=== PATIENT | female | born 1960 | race Caucasian/White ===

== ENCOUNTER 2018-12-17 10:02 | Observation (INO) | payer BC ==
[2018-12-17 10:26] LABS: CHLORIDE,CL 104 mEq/L (98-106); SODIUM,NA 138 mEq/L (136-145)
[2018-12-17] MEDS ORDERED: Ondansetron 4 MG/2 ML SDV IV ONE (11:15)
[2018-12-17] MEDS ORDERED: Sodium Chloride 0.9% 1,000 ML IV ONE (11:15)
[2018-12-17] MEDS ORDERED: Ketorolac 30 MG/ML SDV IVPUSH ONE (11:15)
[2018-12-17] MEDS: fentaNYL 100 MCG/2 ML SDV IV PRN ×4 (11:28→20:23)
[2018-12-17] MEDS: Ondansetron 4 MG/2 ML SDV IVPUSH PRN (14:53)
[2018-12-17] MEDS ORDERED: Levofloxacin/Dextrose 5%-Water 500 MG in Premix Bag 1 BAG IV SCH (16:30)
[2018-12-17] MEDS: Sodium Chloride 0.9% 1,000 ML IV SCH (17:05)
[2018-12-17] MEDS: Acetaminophen/HYDROcodone 325-5 MG Tab PO PRN (17:05)
[2018-12-17] MEDS: Enoxaparin 40 MG/0.4 ML Syringe SUBCUT SCH (17:34)
[2018-12-17] MEDS: cefTRIAXone 1 GM Vial IVPUSH SCH (18:37)
[2018-12-17] MEDS ORDERED: diphenhydrAMINE 25 MG Cap PO PRN (19:04)
[2018-12-17] MEDS ORDERED: methylPREDNISolone Sodium Succinate 125 MG/2 ML SDV IVPUSH ONE (19:06)
[2018-12-18] MEDS: Sodium Chloride 0.9% 1,000 ML IV SCH ×3 (00:55→17:06)
[2018-12-18] MEDS: fentaNYL 100 MCG/2 ML SDV IV PRN ×4 (04:29→23:06)
[2018-12-18] MEDS ORDERED: Iopamidol 755 Mg/ML 200 ML Bottle IV ONE (09:19)
[2018-12-18] MEDS ORDERED: Barium Sulfate Oral Susp 450 ML Bottle PO ONE (09:19)
[2018-12-18] MEDS ORDERED: Iopamidol 755 Mg/ML 100 ML Bottle IVPUSH ONE (13:18)
[2018-12-18] MEDS: Ondansetron 4 MG/2 ML SDV IVPUSH PRN (14:24)
[2018-12-18] MEDS: Acetaminophen/HYDROcodone 325-5 MG Tab PO PRN ×2 (14:25→21:13)
[2018-12-18] MEDS: Enoxaparin 40 MG/0.4 ML Syringe SUBCUT SCH (15:36)
[2018-12-18] MEDS ORDERED: Tamsulosin 0.4 MG Cap.ER PO SCH (16:00)
[2018-12-18] MEDS: cefTRIAXone 1 GM Vial IVPUSH SCH (17:58)
--- NOTE | 2018-12-18 20:56 | PCM.PN ---
- General Info Date of Service: 12/18/18 Admission Dx/Problem (Free Text): Abdominal Pain Functional Status: Reports: Pain Controlled, Tolerating Diet (clear liquids), Ambulating - Review of Systems General: Reports: Fever, Malaise. Denies: Weakness HEENT: Reports: No Symptoms Pulmonary: Denies: Shortness of Breath, Cough Cardiovascular: Denies: Chest Pain, Edema, Lightheadedness Gastrointestinal: Reports: Abdominal Pain, Nausea. Denies: Vomiting Genitourinary: Reports: Dysuria, Burning, Other (pelvic pain/pressure) Musculoskeletal: Reports: No Symptoms Skin: Reports: No Symptoms Neurological: Reports: No Symptoms - Patient Data Vitals - Most Recent: Last Vital Signs Temp 99.9 F 12/18/18 16:00 Pulse 66 12/18/18 16:00 Resp 20 12/18/18 16:00 BP 146/64 H 12/18/18 16:00 Pulse Ox 97 12/18/18 16:00 Weight - Most Recent: 158 lb I&O - Last 24 Hours: Intake & Output 12/18/18 12/18/18 12/18/18 06:59 14:59 22:59 Intake Total 3732 060 6084 Output Total 1200 2200 Balance -21 975 -200 Lab Results Last 24 Hours: Laboratory Results - last 24 hr 12/18/18 12/18/18 Range/Units 05:11 05:11 WBC 21.0 H* (5.0-10.0) 10^3/uL RBC 4.29 (4.00-5.50) 10^6/uL Hgb 12.4 (12.0-16.0) g/dL Hct 37.2 (37.0-47.0) % MCV 86.7 (82.0-94.0) fL MCH 28.9 (27.0-32.0) pg MCHC 33.3 (33.0-38.0) g/dL RDW Coeff of Yordan 14.4 (11.0-15.0) % Plt Count 325 (150-400) 10^3/uL Add Manual Diff Yes Neutrophils % (Manual) 76 (35-85) % Lymphocytes % (Manual) 22 (21-55) % Monocytes % (Manual) 2 (2-12) % Sodium 141 (136-145) mEq/L Potassium 3.8 (3.5-5.0) mEq/L Chloride 107 H (98-106) mEq/L Carbon Dioxide 24 (21-32) mmol/L BUN 12 (7-18) mg/dL Creatinine 1.1 H (0.6-1.0) mg/dL Est Cr Clr Drug Dosing 42.07 mL/min Estimated GFR (MDRD) 51 L (>=60) mL/min Glucose 109 H D (75-99) mg/dL Calcium 8.6 (8.4-10.1) mg/dL Total Bilirubin 0.4 (0.0-1.0) mg/dL AST 24 (15-37) U/L ALT 21 (12-78) U/L Alkaline Phosphatase 53 (46-116) U/L C-Reactive Protein 0.9 H (0.2-0.8) mg/dL Total Protein 6.5 (6.4-8.2) g/dL Albumin 3.3 L (3.4-5.0) g/dL Med Orders - Current: Current Medications Hydrocodone Bitart/Acetaminophen ([place] 325-5 Mg) 1 tab PO Q4H PRN PRN Reason: Pain (moderate 4-6) Last Admin: 12/18/18 14:25 Dose: 1 tab Ceftriaxone Sodium (Rocephin) 1 gm IVPUSH Q24H ZE Last Admin: 12/18/18 17:58 Dose: 1 gm Diphenhydramine HCl (Benadryl) 50 mg PO Q6H PRN PRN Reason: Rash Last Admin: 12/17/18 19:29 Dose: 50 mg Enoxaparin Sodium (Lovenox) 40 mg SUBCUT DAILY@1600 [facility] Last Admin: 12/18/18 15:36 Dose: 40 mg Fentanyl (Sublimaze) 25 mcg IV Q1H PRN PRN Reason: Pain Last Admin: 12/18/18 17:56 Dose: 25 mcg Sodium Chloride (Normal Saline) 1,000 mls @ 125 mls/hr IV ASDIRECTED [facility] Last Admin: 12/18/18 17:06 Dose: 125 mls/hr Ondansetron HCl (Zofran) 4 mg IVPUSH Q4H PRN PRN Reason: Nausea/Vomiting Last Admin: 12/18/18 14:24 Dose: 4 mg Tamsulosin HCl (Flomax) 0.4 mg PO BEDTIME ZE Last Admin: 12/18/18 15:50 Dose: 0.4 mg Discontinued Medications Barium Sulfate (Readi-Cat 2) 900 ml PO ONETIME ONE Stop: 12/18/18 09:20 Last Admin: 12/18/18 12:52 Dose: 900 ml Sodium Chloride (Normal Saline) 1,000 mls @ 250 mls/hr IV ONETIME ONE Stop: 12/17/18 15:14 Last Admin: 12/17/18 11:22 Dose: 250 mls/hr Levofloxacin/Dextrose 500 mg/ (Premix) 100 mls @ 100 mls/hr IV DAILY@1600 ZE Last Admin: 12/17/18 17:05 Dose: 100 mls/hr Iopamidol (Isovue-370 (76%)) 160 ml IV ONETIME ONE Stop: 12/18/18 09:20 Last Admin: 12/18/18 13:00 Dose: 200 ml Iopamidol (Isovue-370 (76%)) 100 ml IVPUSH ONETIME ONE Stop: 12/18/18 13:19 Last Admin: 12/18/18 13:22 Dose: 100 ml Ketorolac Tromethamine (Toradol) 30 mg IVPUSH ONETIME ONE Stop: 12/17/18 11:16 Last Admin: 12/17/18 11:23 Dose: 30 mg Methylprednisolone Sodium Succinate (Solu-Medrol) 62.5 mg IVPUSH ONETIME ONE Stop: 12/17/18 19:07 Last Admin: 12/17/18 19:28 Dose: 62.5 mg Ondansetron HCl (Zofran) 4 mg IV ONETIME ONE Stop: 12/17/18 11:16 Last Admin: 12/17/18 11:22 Dose: 4 mg - Exam General: Alert, Oriented HEENT: Mucous Membr. Moist/[place] Neck: Supple Lungs: Clear to Auscultation, Normal Respiratory Effort Cardiovascular: Regular Rate, Regular Rhythm GI/Abdominal Exam: Normal Bowel Sounds, Soft, Non-Tender Extremities: Normal Inspection, No Pedal Edema Skin: Warm, Dry Neurological: No New Focal Deficit - Problem List & Annotations (1) Colicky LLQ abdominal pain SNOMED Code(s): 810219194, [id number] Code(s): R10.32 - LEFT LOWER QUADRANT PAIN Status: Acute Priority: High Current Visit: Yes - Problem List Review Problem List Initiated/Reviewed/Updated: Yes - My Orders Last 24 Hours: My Active Orders 12/18/18 09:11 Abdomen Pelvis w Cont [CT] Routine 12/18/18 16:00 Tamsulosin [Flomax] 0.4 mg PO BEDTIME - Assessment Assessment:: LLQ colicky abdominal pain - Plan Plan:: Patient continues to have pain at times. Yesterday pain was a 9-10 out of 10, today states a 6/10. She states has a deep ache. Occasionally feels pelvic pressure/burning. "feel like something is going to protrude out". Tolerating clear liquids. Is voiding without difficulty. Low grade temps through night. Patient developed redness and hives after getting IV Levaquin yesterday. Was given Benadryl and a dose of Solu Medrol which resolved symptoms. Switched to Rocephin to cover for potential infection. CT for stone read as negative, could not follow ureter to bladder but did not see any radiopaque evidence of stone. Positive hydronephrosis. WBC is elevated at 21 today. CRP negative. Creatinine 1.1. Have been straining urine. Will proceed with CT scan today with contrast as unable to yet determine source of hydronephrosis. Patient aware of plan. Inappropriate for discharge due to need for further testing.
--- NOTE | 2018-12-18 21:01 | PCM.SN ---
- Free Text/Narrative Note: CT scan of abdomen and pelvis done today and read as positive for 4 mm stone near the UVJ. Patient informed. Will continue with IV fluids and pain meds. Start Flomax. Reevaluate labs in am.
[2018-12-19] MEDS: Sodium Chloride 0.9% 1,000 ML IV SCH ×2 (00:58→09:32)
[2018-12-19] MEDS: fentaNYL 100 MCG/2 ML SDV IV PRN ×2 (01:29→03:54)
[2018-12-19] MEDS: Acetaminophen/HYDROcodone 325-5 MG Tab PO PRN (05:17)
[2018-12-19 07:48] LABS: CHLORIDE,CL 106 mEq/L (98-106); SODIUM,NA 141 mEq/L (136-145)
[2018-12-19] MEDS ORDERED: Acetaminophen/oxyCODONE 325-5 MG Tab PO PRN (08:20)
[2018-12-19] MEDS: Ketorolac 30 MG/ML SDV IVPUSH SCH ×2 (08:51→14:09)
[2018-12-19] MEDS ORDERED: Docusate Sodium 100 MG Cap PO PRN (12:12)
[2018-12-19 12:13] VITALS: BP 139/75; PULSE 63
[2018-12-19] MEDS: Ondansetron 4 MG/2 ML SDV IVPUSH PRN (12:16)
--- NOTE | 2018-12-19 15:18 | PCM.DCSUM1 ---
Discharge Summary - Hospital Course Free Text/Narrative:: Patient presented to clinic with complaints of abdominal pain for over 12 hours. Had nausea and vomiting. Feels a burning/pressure sensation in her groin/bladder region and pain that radiates to her left flank area. Rated pain at a 9-10/10. She had work up done in the clinic that showed large amount of blood in her urine, WBC 19.5, electrolytes normal. CRP negative at 0.8. Abdominal xray normal. Sent over for IV fluids, pain meds and zofran for nausea. Obtain CT to rule out stone. CT was negative for stone. Unable to completely follow the ureter but did not see evidence of stone. Hydronephrosis present. Admitted for IV fluids, pain meds. Diagnosis: Stroke: No Modified Johnson Scale: No Symptoms at All Modified Johnson Scale Score: 0 - Discharge Data Discharge Date: 12/19/18 Discharge Disposition: Home, Self-Care 01 Condition: Good - Referral to Home Health Primary Care Physician: Harlan Mojica MD - Discharge Diagnosis/Problem(s) (1) Colicky LLQ abdominal pain SNOMED Code(s): 399428475, [id number] ICD Code: R10.32 - LEFT LOWER QUADRANT PAIN Status: Acute Priority: High - Patient Summary/Data Complications: none Hospital Course: Patient feeling better. Pain is down to a 4, tolerating oral pain meds to control pain. Initially was seen in clinic with abdominal pain. Work up did show large amount of blood but CT negative for stone. Did state the unable to see full ureter to bladder but no evidence of stone. WBC was high on admission at 19.2 but CRP was negative. Did give dose of IV Levaquin due to hydronephrosis without notable cause initially. Patient had allergic reaction to Levaquin, developed redness and then hives to arm. Given Benadryl and a dose of Solu Medrol. Hives cleared. WBC did rise to 21 on day 1. CRP peaked at 3.2, wBC decreased to [address] scan was repeated with contrast and now noted 4 mm stone to UVJ. Voiding well. Tolerating meal intake. Have been straining urine, has not passed stone as of yet but pain has improved. Was started on Flomax. Will discharge home on Percocet and Flomax. Follow up with Dr. Dukes next week or sooner if needed. Continue to push fluids and strain urine. - Patient Instructions Diet: Usual Diet as Tolerated Activity: As Tolerated - Discharge Plan *PRESCRIPTION DRUG MONITORING PROGRAM REVIEWED*: No *COPY OF PRESCRIPTION DRUG MONITORING REPORT IN PATIENT JAMA: No Prescriptions/Med Rec: Acetaminophen/oxyCODONE [Percocet 325-5 MG] 1 - 2 tab PO Q6H PRN #30 tablet PRN Reason: Pain Tamsulosin [Flomax] 0.4 mg PO BEDTIME #7 cap.er Home Medications: Home Meds Ascorbic Acid [Vitamin C] 1,000 mg PO DAILY 06/16/15 [History] Aspirin [Adult Low Dose Aspirin EC] 81 mg PO DAILY 06/16/15 [History] Calcium Carbonate [Calcium] 600 mg PO BID 06/16/15 [History] Cholecalciferol (Vitamin D3) [Vitamin D3] 1,000 unit PO BID 06/16/15 [History] Evening Rebuck Oil [Evening Rebuck] 500 mg PO BID 06/16/15 [History] Garlic 1,000 mg PO DAILY 06/16/15 [History] Gluc 2KCl/Chondr/Brianna Hy/Hy Ac [Glucosamine & Chondroitin Cap] 1 cap PO BID 01/21 [History] Magnesium 500 mg PO BID 06/16/15 [History] Mesalamine [Delzicol] 400 mg PO BID 06/16/15 [History] Omeprazole 20 mg PO BEDTIME 06/16/15 [History] Potassium Chloride 10 meq PO DAILY 06/16/15 [History] Vitamin B Complex/Folic Acid [Vitamin B-50 Complex] 1 tab PO DAILY 06/16/15 [ History] Vitamin E 400 unit PO DAILY 06/16/15 [History] L.acidoph,Paracasei, B.lactis [Probiotic] 1 cap PO DAILY 12/17/18 [History] Norethindrone AC-Eth Estradiol [Norethin-Eth Estrad 1 mg-5 Mcg] 1 tab PO DAILY 12/17/18 [History] Acetaminophen/oxyCODONE [Percocet 325-5 MG] 1 - 2 tab PO Q6H PRN #30 tablet [Rx] Tamsulosin [Flomax] 0.4 mg PO BEDTIME #7 cap.er 12/19/18 [Rx] Patient Handouts: Kidney Stones Referrals: Arnaud Dukes MD [ED Physician] - (Follow up with Dr. Dukes on December 25) - Discharge Summary/Plan Comment DC Time >30 min.: No - General Info Date of Service: 12/19/18 Admission Dx/Problem (Free Text: Abdominal Pain Functional Status: Reports: Pain Controlled, Tolerating Diet, Ambulating - Review of Systems General: Reports: Fever, Fatigue, Malaise HEENT: Reports: No Symptoms Pulmonary: Denies: Shortness of Breath, Cough Cardiovascular: Denies: Chest Pain, Edema, Lightheadedness Gastrointestinal: Reports: Abdominal Pain. Denies: Decreased Appetite, Nausea, Vomiting Genitourinary: Reports: Burning Musculoskeletal: Reports: No Symptoms Skin: Reports: No Symptoms Neurological: Reports: No Symptoms - Patient Data Vitals - Most Recent: Last Vital Signs Temp 98.3 F 12/19/18 12:00 Pulse 63 12/19/18 12:00 Resp 16 12/19/18 12:00 BP 139/75 12/19/18 12:00 Pulse Ox 98 12/19/18 12:00 Weight - Most Recent: 158 lb I&O - Last 24 hours: Intake & Output 12/19/18 12/19/18 12/19/18 06:59 14:59 22:59 Intake Total 1823 1500 Output Total 2200 950 Balance -377 550 Lab Results - Last 24 hrs: Laboratory Results - last 24 hr 12/19/18 12/19/18 Range/Units 07:00 07:00 WBC 19.4 H (5.0-10.0) 10^3/uL RBC 4.00 (4.00-5.50) 10^6/uL Hgb 11.7 L (12.0-16.0) g/dL Hct 34.9 L (37.0-47.0) % MCV 87.3 (82.0-94.0) fL MCH 29.3 (27.0-32.0) pg MCHC 33.5 (33.0-38.0) g/dL RDW Coeff of Yordan 14.6 (11.0-15.0) % Plt Count 310 (150-400) 10^3/uL Neut % (Auto) 79.3 (35-85) % Lymph % (Auto) 10.3 (10-55) % [place] % (Auto) 10.1 (0-16) % Eos % (Auto) 0.1 (0-5) % Baso % (Auto) 0.2 (0-3) % Neut # (Auto) 15.36 H (1.80-7.00) 10^3/uL Lymph # (Auto) 2.00 (1.00-4.80) 10^3/uL [place] # (Auto) 1.95 H (0.00-0.80) 10^3/uL Eos # (Auto) 0.02 (0.00-0.45) 10^3/uL Baso # (Auto) 0.03 10^3/uL Sodium 141 (136-145) mEq/L Potassium 4.0 (3.5-5.0) mEq/L Chloride 106 (98-106) mEq/L Carbon Dioxide 26 (21-32) mmol/L BUN 7 (7-18) mg/dL Creatinine 0.8 (0.6-1.0) mg/dL Est Cr Clr Drug Dosing 57.84 mL/min Estimated GFR (MDRD) > 60 (>=60) mL/min Glucose 97 (75-99) mg/dL Calcium 8.4 (8.4-10.1) mg/dL Total Bilirubin 0.5 (0.0-1.0) mg/dL AST 23 (15-37) U/L ALT 22 (12-78) U/L Alkaline Phosphatase 48 (46-116) U/L C-Reactive Protein 3.2 H (0.2-0.8) mg/dL Total Protein 6.0 L (6.4-8.2) g/dL Albumin 3.0 L (3.4-5.0) g/dL Med Orders - Current: Current Medications Hydrocodone Bitart/Acetaminophen ([place] 325-5 Mg) 1 tab PO Q4H PRN PRN Reason: Pain (moderate 4-6) Last Admin: 12/19/18 05:17 Dose: 1 tab Ceftriaxone Sodium (Rocephin) 1 gm IVPUSH Q24H ZE Last Admin: 12/18/18 17:58 Dose: 1 gm Diphenhydramine HCl (Benadryl) 50 mg PO Q6H PRN PRN Reason: Rash Last Admin: 12/17/18 19:29 Dose: 50 mg Docusate Sodium (Colace) 100 mg PO DAILY PRN PRN Reason: Constipation Last Admin: 12/19/18 12:16 Dose: 100 mg Enoxaparin Sodium (Lovenox) 40 mg SUBCUT DAILY@1600 [facility] Last Admin: 12/18/18 15:36 Dose: 40 mg Fentanyl (Sublimaze) 25 mcg IV Q1H PRN PRN Reason: Pain Last Admin: 12/19/18 03:54 Dose: 25 mcg Sodium Chloride (Normal Saline) 1,000 mls @ 125 mls/hr IV ASDIRECTED [facility] Last Admin: 12/19/18 09:32 Dose: 125 mls/hr Ketorolac Tromethamine (Toradol) 30 mg IVPUSH Q6H [facility] Stop: 12/24/18 08:25 Last Admin: 12/19/18 14:09 Dose: Not Given Ondansetron HCl (Zofran) 4 mg IVPUSH Q4H PRN PRN Reason: Nausea/Vomiting Last Admin: 12/19/18 12:16 Dose: 4 mg Oxycodone/Acetaminophen (Percocet 325-5 Mg) 1 - 2 tab PO Q6H PRN PRN Reason: Pain Last Admin: 12/19/18 08:53 Dose: 2 tab Tamsulosin HCl (Flomax) 0.4 mg PO BEDTIME [facility] Last Admin: 12/18/18 15:50 Dose: 0.4 mg Discontinued Medications Barium Sulfate (Readi-Cat 2) 900 ml PO ONETIME ONE Stop: 12/18/18 09:20 Last Admin: 12/18/18 12:52 Dose: 900 ml Sodium Chloride (Normal Saline) 1,000 mls @ 250 mls/hr IV ONETIME ONE Stop: 12/17/18 15:14 Last Admin: 12/17/18 11:22 Dose: 250 mls/hr Levofloxacin/Dextrose 500 mg/ (Premix) 100 mls @ 100 mls/hr IV DAILY@1600 [facility] Last Admin: 12/17/18 17:05 Dose: 100 mls/hr Iopamidol (Isovue-370 (76%)) 160 ml IV ONETIME ONE Stop: 12/18/18 09:20 Last Admin: 12/18/18 13:00 Dose: 200 ml Iopamidol (Isovue-370 (76%)) 100 ml IVPUSH ONETIME ONE Stop: 12/18/18 13:19 Last Admin: 12/18/18 13:22 Dose: 100 ml Ketorolac Tromethamine (Toradol) 30 mg IVPUSH ONETIME ONE Stop: 12/17/18 11:16 Last Admin: 12/17/18 11:23 Dose: 30 mg Methylprednisolone Sodium Succinate (Solu-Medrol) 62.5 mg IVPUSH ONETIME ONE Stop: 12/17/18 19:07 Last Admin: 12/17/18 19:28 Dose: 62.5 mg Ondansetron HCl (Zofran) 4 mg IV ONETIME ONE Stop: 12/17/18 11:16 Last Admin: 12/17/18 11:22 Dose: 4 mg - Exam General: Reports: Alert, Oriented HEENT: Reports: Mucous Membr. Moist/[place] Neck: Reports: Supple Lungs: Reports: Clear to Auscultation, Normal Respiratory Effort Cardiovascular: Reports: Regular Rate, Regular Rhythm GI/Abdominal Exam: Normal Bowel Sounds, Soft, Non-Tender Extremities: Normal Inspection, No Pedal Edema Skin: Reports: Warm, Dry Neurological: Reports: No New Focal Deficit
== END 2018-12-19 16:00 | disposition home or self-care (01) ==
LOC: CC.MS 10:02 → CC.FCMC 10:02 → UNDOADMOB 15:57 → CC.MS 15:57
PROVIDERS: ADMIT Physician Assistant Medical; ATTEND Family Medicine
DX: N13.2 Hydronephrosis with renal and ureteral calculous obstruction (principal); R19.7 Diarrhea, unspecified; F17.200 Nicotine dependence, unspecified, uncomplicated; Z88.1 Allergy status to other antibiotic agents; Z79.82 Long term (current) use of aspirin; Z79.899 Other long term (current) drug therapy
CPT/HCPCS: 36415; 74019; 74176; 74177; 80053; 81001; 82150; 83690; 85025; 86140; 96361; 96365; 96372; 96375; 96376; A9270; G0378; J0696; J1650; J1885; J1956; J2405; J2930; J3010; J7030; Q9967

== ENCOUNTER 2022-06-02 14:50 | Emergency (ER) | payer BC ==
[2022-06-02 15:28] VITALS: BP 112/72; PULSE 106
[2022-06-02] MEDS: Ketorolac 30 MG/ML SDV IM ONE (15:35)
[2022-06-02] MEDS: Acetaminophen 325 MG Tab PO ONE (15:38)
== END 2022-06-02 16:00 | disposition home or self-care (01) ==
LOC: CC.ED 14:50
DX: M79.81 Nontraumatic hematoma of soft tissue (principal); Z88.1 Allergy status to other antibiotic agents; Z96.651 Presence of right artificial knee joint; Z79.82 Long term (current) use of aspirin; Z79.01 Long term (current) use of anticoagulants; Z79.899 Other long term (current) drug therapy
CPT/HCPCS: 96372; 99283; 99284; A9270-GY; J1885

== ENCOUNTER 2023-12-08 15:49 | Inpatient (IN) | payer BC ==
[~2023-12-08 15:49] MED LIST: Sodium Chloride 0.9% 1,000 ML IV ONE
[2023-12-08 16:10] LABS: APPEARANCE,URINE SLIGHTLY CLOUDY (CLEAR); BILIRUBIN,URINE NEGATIVE (NEGATIVE); COLOR,URINE YELLOW (YELLOW); GLUCOSE,URINE NEGATIVE (NEGATIVE); KETONES,URINE NEGATIVE (NEGATIVE); LEUKOCYTE ESTERASE,URINE TRACE (NEGATIVE); NITRITE,URINE NEGATIVE (NEGATIVE); OCCULT BLOOD,URINE SMALL (NEGATIVE); PROTEIN,URINE 100 mg/dL (NEGATIVE)
[2023-12-08 16:31] LABS: BASOPHILS ABSOLUTE AUTO 0.03 10^3/uL (0.00-0.50); BASOPHILS PERCENT AUTO 0.2 % (0-1); EOSINOPHILS ABSOLUTE AUTO 0.01 10^3/uL (0.00-1.50); EOSINOPHILS PERCENT AUTO 0.1 % (0-6); HEMATOCRIT 37.2 % (37.0-47.0); HEMOGLOBIN 12.1 g/dL (12.0-16.0); IMMATURE GRAN ABSOLUTE AUTO 0.07 10^3/uL (0.00-0.49); IMMATURE GRAN PERCENT AUTO 0.4 % (0.0-4.9); LYMPHOCYTES ABSOLUTE AUTO 1.61 10^3/uL (0.60-5.00); LYMPHOCYTES PERCENT AUTO 8.8 % (24-44); MEAN CORPUSCULAR HGB CONC 32.5 g/dL (32.0-36.0); MEAN CORPUSCULAR VOLUME 86.1 fL (83.0-97.0); MONOCYTES ABSOLUTE AUTO 2.02 10^3/uL (0.00-1.50); MONOCYTES PERCENT AUTO 11.1 % (0-10); NEUTROPHILS ABSOLUTE AUTO 14.53 x10^3/uL (1.80-8.00); NEUTROPHILS PERCENT AUTO 79.4 % (41-71); PLATELET COUNT,PLT 371 10^3/uL (150-400); RED BLOOD CELL COUNT 4.32 x10^6/uL (4.00-5.50); WHITE BLOOD CELL COUNT,WBC 18.3 10^3/uL (4.0-11.0)
[2023-12-08 16:38] LABS: BACTERIA,URINE FEW /HPF (NOT SEEN); EPITHELIAL CELLS,URINE FEW /HPF (NOT SEEN); MUCUS,URINE FEW /HPF (NOT SEEN); WBC,URINE 30-40 /HPF (0-5); YEAST,URINE FEW /HPF (NOT SEEN)
[2023-12-08 16:44] LABS: ALBUMIN 2.9 g/dL (3.4-5.0); BILIRUBIN TOTAL 0.5 mg/dL (0.0-1.0); C-REACTIVE PROTEIN 22.94 mg/dL (<=0.50); CALCIUM 9.4 mg/dL (8.4-10.1); EST CRCL DRUG DOSING (CG) 43.45 mL/min; PROTEIN TOTAL,TP 7.6 g/dL (6.4-8.2)
[2023-12-08] MEDS: Iopamidol 755 Mg/ML 100 ML Bottle IVPUSH ONE (17:20)
[2023-12-08] MEDS: Sodium Chloride 0.9% 1,000 ML IV ONE ×2 (17:38→20:32)
[2023-12-08] MEDS: Piperacillin/Tazobactam 4.5 GM in Sodium Chloride 0.9% 100 ML IV ONE (17:38)
[2023-12-08] MEDS ORDERED: Non-Formulary Medication 1 Each (Colestipol 1 GM Tablet) PO SCH (20:21)
[2023-12-08] MEDS ORDERED: Ondansetron 4 MG/2 ML SDV IV PRN (20:21)
[2023-12-08] MEDS ORDERED: Non-Formulary Medication 1 Each (Omeprazole [Omeprazole] 20 MG Capsule.Dr) PO SCH (20:21)
[2023-12-08] MEDS ORDERED: Ondansetron 4 MG Tab.DIS PO PRN (20:21)
[2023-12-08] MEDS: Acetaminophen 325 MG Tab PO PRN (20:50)
[2023-12-08] MEDS: Magnesium Oxide 400 MG Tab PO SCH (20:59)
[2023-12-08] MEDS: Pantoprazole 40 MG Tab.CR PO SCH (20:59)
[2023-12-08] MEDS: Cholecalciferol (Vitamin D3) 25 MCG Tab PO SCH (20:59)
[2023-12-08] MEDS: Losartan 25 MG Tab PO SCH (20:59)
[2023-12-08] MEDS: Sodium Chloride 0.9% 1,000 ML IV SCH (21:52)
[2023-12-08] MEDS: Cyclobenzaprine 10 MG Tab PO PRN (22:13)
[2023-12-08] MEDS: cefTRIAXone 2 GM Vial IVPUSH SCH (23:45)
[2023-12-08] MEDS: Docusate Sodium 100 MG Cap PO SCH (23:46)
[2023-12-08] MEDS: Fluconazole 100 MG Tab PO ONE (23:46)
[2023-12-08] MEDS: Temazepam 15 MG Cap PO PRN (23:46)
[2023-12-08] MEDS: Levofloxacin/Dextrose 5%-Water 500 MG in Premix Bag 1 BAG IV SCH (23:50)
[2023-12-09] MEDS: diphenhydrAMINE 50 MG/ML SDV ONE (00:22)
[2023-12-09] MEDS: diphenhydrAMINE 50 MG/ML SDV IVPUSH ONE (05:41)
[2023-12-09] MEDS: Lactobacillus Rhamnosus GG (Probiotic) Cap PO SCH (07:52)
[2023-12-09] MEDS: Metoprolol Succinate 100 MG Tab.ER PO SCH (07:52)
[2023-12-09] MEDS: Topiramate 100 MG Tab PO SCH (07:52)
[2023-12-09] MEDS: Spironolactone 25 MG Tab PO SCH (07:54)
[2023-12-09] MEDS: Venlafaxine 75 MG Cap.ER PO SCH (07:54)
[2023-12-09] MEDS: Potassium Chloride 10 MEQ Tab.ER PO SCH (07:54)
[2023-12-09] MEDS: Rosuvastatin 10 MG Tab PO SCH (07:54)
[2023-12-09] MEDS: Aspirin 81 MG Tab.EC PO SCH (07:54)
[2023-12-09] MEDS: Piperacillin/Tazobactam 4.5 GM in Sodium Chloride 0.9% 100 ML IV SCH (07:55)
[2023-12-09] MEDS ORDERED: Sennosides 8.6 MG Tab PO SCH (08:00)
[2023-12-09 08:11] LABS: BASOPHILS ABSOLUTE AUTO 0.04 10^3/uL (0.00-0.50); BASOPHILS PERCENT AUTO 0.3 % (0-1); EOSINOPHILS ABSOLUTE AUTO 0.03 10^3/uL (0.00-1.50); EOSINOPHILS PERCENT AUTO 0.2 % (0-6); HEMATOCRIT 31.9 % (37.0-47.0); HEMOGLOBIN 10.4 g/dL (12.0-16.0); IMMATURE GRAN ABSOLUTE AUTO 0.05 10^3/uL (0.00-0.49); IMMATURE GRAN PERCENT AUTO 0.4 % (0.0-4.9); LYMPHOCYTES PERCENT AUTO 16.4 % (24-44); MEAN CORPUSCULAR HEMOGLOBIN 27.9 pg (27.0-32.0); MEAN CORPUSCULAR HGB CONC 32.6 g/dL (32.0-36.0); MEAN CORPUSCULAR VOLUME 85.5 fL (83.0-97.0); MONOCYTES ABSOLUTE AUTO 1.89 10^3/uL (0.00-1.50); MONOCYTES PERCENT AUTO 14.1 % (0-10); NEUTROPHILS PERCENT AUTO 68.6 % (41-71); PLATELET COUNT,PLT 371 10^3/uL (150-400); RED BLOOD CELL COUNT 3.73 x10^6/uL (4.00-5.50); WHITE BLOOD CELL COUNT,WBC 13.4 10^3/uL (4.0-11.0)
[2023-12-09 08:44] LABS: BILIRUBIN TOTAL 0.2 mg/dL (0.0-1.0); C-REACTIVE PROTEIN 14.23 mg/dL (<=0.50); CALCIUM 8.6 mg/dL (8.4-10.1); CREATININE 0.8 mg/dL (0.6-1.0); EST CRCL DRUG DOSING (CG) 54.31 mL/min; POTASSIUM,K 3.5 mEq/L (3.5-5.0); PROTEIN TOTAL,TP 6.4 g/dL (6.4-8.2)
[2023-12-09] MEDS: Ibuprofen 200 MG Tab PO PRN (14:22)
[2023-12-10] MEDS: LORazepam 0.5 MG Tab PO PRN (08:35)
[2023-12-10 09:16] LABS: BASOPHILS ABSOLUTE AUTO 0.04 10^3/uL (0.00-0.50); BASOPHILS PERCENT AUTO 0.1 % (0-1); HEMOGLOBIN 10.8 g/dL (12.0-16.0); IMMATURE GRAN ABSOLUTE AUTO 0.27 10^3/uL (0.00-0.49); IMMATURE GRAN PERCENT AUTO 0.9 % (0.0-4.9); LYMPHOCYTES ABSOLUTE AUTO 0.96 10^3/uL (0.60-5.00); LYMPHOCYTES PERCENT AUTO 3.1 % (24-44); MEAN CORPUSCULAR HEMOGLOBIN 28.1 pg (27.0-32.0); MEAN CORPUSCULAR HGB CONC 32.7 g/dL (32.0-36.0); MEAN CORPUSCULAR VOLUME 85.7 fL (83.0-97.0); MONOCYTES ABSOLUTE AUTO 1.48 10^3/uL (0.00-1.50); MONOCYTES PERCENT AUTO 4.7 % (0-10); NEUTROPHILS ABSOLUTE AUTO 28.63 x10^3/uL (1.80-8.00); NEUTROPHILS PERCENT AUTO 91.2 % (41-71); PLATELET COUNT,PLT 391 10^3/uL (150-400); RED BLOOD CELL COUNT 3.85 x10^6/uL (4.00-5.50)
[2023-12-10 09:33] LABS: BILIRUBIN TOTAL 0.6 mg/dL (0.0-1.0); C-REACTIVE PROTEIN 11.07 mg/dL (<=0.50); CALCIUM 8.7 mg/dL (8.4-10.1); EST CRCL DRUG DOSING (CG) 43.45 mL/min; PROTEIN TOTAL,TP 6.6 g/dL (6.4-8.2)
[2023-12-10 09:55] LABS: WHITE BLOOD CELL COUNT,WBC 31.4 10^3/uL (4.0-11.0)
[2023-12-10 10:04] LABS: POTASSIUM,K 2.8 mEq/L (3.5-5.0)
[2023-12-10] MEDS: Potassium Chloride Riders 20 MEQ in Premix Bag 1 BAG IV SCH (12:00)
[2023-12-10] MEDS: Meropenem 1 GM SDV IVPUSH ONE (12:00)
[2023-12-10] MEDS: Enoxaparin 40 MG/0.4 ML Syringe SUBCUT SCH (16:07)
[2023-12-10] MEDS ORDERED: Sodium Chloride 0.9% 1,000 ML IV SCH (16:15)
[2023-12-10] MEDS: Sodium Chloride 0.9% 1,000 ML ONE (16:17)
[2023-12-10] MEDS: MESALAMINE 800 MG PO SCH (18:04)
[2023-12-11] MEDS: Meropenem 1 GM in Sodium Chloride 0.9% 100 ML IV SCH (00:01)
[2023-12-11] MEDS: Benzonatate 100 MG Cap PO PRN (02:09)
[2023-12-11 07:23] LABS: BASOPHILS ABSOLUTE AUTO 0.05 10^3/uL (0.00-0.50); BASOPHILS PERCENT AUTO 0.3 % (0-1); EOSINOPHILS PERCENT AUTO 0.6 % (0-6); HEMATOCRIT 29.1 % (37.0-47.0); HEMOGLOBIN 9.6 g/dL (12.0-16.0); IMMATURE GRAN ABSOLUTE AUTO 0.07 10^3/uL (0.00-0.49); IMMATURE GRAN PERCENT AUTO 0.4 % (0.0-4.9); LYMPHOCYTES ABSOLUTE AUTO 1.79 10^3/uL (0.60-5.00); LYMPHOCYTES PERCENT AUTO 11.2 % (24-44); MEAN CORPUSCULAR HEMOGLOBIN 28.2 pg (27.0-32.0); MEAN CORPUSCULAR VOLUME 85.3 fL (83.0-97.0); MONOCYTES ABSOLUTE AUTO 1.31 10^3/uL (0.00-1.50); MONOCYTES PERCENT AUTO 8.2 % (0-10); NEUTROPHILS ABSOLUTE AUTO 12.65 x10^3/uL (1.80-8.00); NEUTROPHILS PERCENT AUTO 79.3 % (41-71); PLATELET COUNT,PLT 389 10^3/uL (150-400); RED BLOOD CELL COUNT 3.41 x10^6/uL (4.00-5.50)
[2023-12-11 10:51] LABS: BILIRUBIN TOTAL 0.3 mg/dL (0.0-1.0); C-REACTIVE PROTEIN 16.44 mg/dL (<=0.50); CALCIUM 8.9 mg/dL (8.4-10.1); CREATININE 0.7 mg/dL (0.6-1.0); EST CRCL DRUG DOSING (CG) 62.07 mL/min; POTASSIUM,K 3.5 mEq/L (3.5-5.0); PROTEIN TOTAL,TP 6.1 g/dL (6.4-8.2)
[2023-12-11] MEDS: Sodium Chloride 0.9% 1,000 ML IV SCH (13:04)
[2023-12-11 15:58] LABS: ALBUMIN 2.3 g/dL (3.4-5.0)
[2023-12-11 17:07] LABS: ALBUMIN 2.5 g/dL (3.4-5.0)
[2023-12-11] MEDS: Ketorolac 30 MG/ML SDV IVPUSH PRN (17:37)
[2023-12-11] MEDS: guaiFENesin/Dextromethorphan 100-10 MG/5 ML Soln 5 ML Cup PO PRN (17:38)
[2023-12-11] MEDS: Estradiol 1 MG Tab PO SCH (19:42)
[2023-12-11] MEDS: Meropenem 1 GM in Sodium Chloride 0.9% 100 ML IV ONE (19:51)
[2023-12-11] MEDS: Meropenem 1 GM SDV ONE (23:03)
[2023-12-12] MEDS: Ertapenem 1 GM Vial IVPUSH SCH (07:39)
[2023-12-12 07:45] LABS: BASOPHILS ABSOLUTE AUTO 0.05 10^3/uL (0.00-0.50); BASOPHILS PERCENT AUTO 0.4 % (0-1); EOSINOPHILS ABSOLUTE AUTO 0.15 10^3/uL (0.00-1.50); EOSINOPHILS PERCENT AUTO 1.3 % (0-6); HEMATOCRIT 29.5 % (37.0-47.0); HEMOGLOBIN 9.8 g/dL (12.0-16.0); IMMATURE GRAN ABSOLUTE AUTO 0.14 10^3/uL (0.00-0.49); IMMATURE GRAN PERCENT AUTO 1.2 % (0.0-4.9); LYMPHOCYTES ABSOLUTE AUTO 2.21 10^3/uL (0.60-5.00); MEAN CORPUSCULAR HEMOGLOBIN 28.1 pg (27.0-32.0); MEAN CORPUSCULAR HGB CONC 33.2 g/dL (32.0-36.0); MEAN CORPUSCULAR VOLUME 84.5 fL (83.0-97.0); MONOCYTES ABSOLUTE AUTO 0.93 10^3/uL (0.00-1.50); NEUTROPHILS ABSOLUTE AUTO 8.14 x10^3/uL (1.80-8.00); NEUTROPHILS PERCENT AUTO 70.1 % (41-71); PLATELET COUNT,PLT 420 10^3/uL (150-400); RED BLOOD CELL COUNT 3.49 x10^6/uL (4.00-5.50); WHITE BLOOD CELL COUNT,WBC 11.6 10^3/uL (4.0-11.0)
[2023-12-12 07:59] LABS: ALBUMIN 2.3 g/dL (3.4-5.0); BILIRUBIN TOTAL 0.3 mg/dL (0.0-1.0); C-REACTIVE PROTEIN 7.5 mg/dL (<=0.50); CALCIUM 8.9 mg/dL (8.4-10.1); CREATININE 0.7 mg/dL (0.6-1.0); EST CRCL DRUG DOSING (CG) 62.07 mL/min; POTASSIUM,K 3.2 mEq/L (3.5-5.0); PROTEIN TOTAL,TP 6.2 g/dL (6.4-8.2)
[2023-12-12] MEDS: Potassium Chloride 20 MEQ Tab.ER PO ONE (10:24)
[2023-12-12 12:21] VITALS: BP 149/82; PULSE 82
== END 2023-12-12 13:00 | disposition home or self-care (01) | DRG 720 ==
LOC: SUPCPDRO 15:49 → CC.ED 15:49 → CC.MS 18:02 → UNDOADMIN 18:02 → CC.MS 18:17
PROVIDERS: ADMIT Physician Assistant Medical; ATTEND Physician Assistant Medical
DX: A41.4 Sepsis due to anaerobes (principal); N30.01 Acute cystitis with hematuria; K59.00 Constipation, unspecified; I10 Essential (primary) hypertension; E78.00 Pure hypercholesterolemia, unspecified; M19.90 Unspecified osteoarthritis, unspecified site; F32.A Depression, unspecified; E87.6 Hypokalemia; D72.829 Elevated white blood cell count, unspecified; R51.9 Headache, unspecified; M54.2 Cervicalgia; G89.29 Other chronic pain; R19.7 Diarrhea, unspecified; Z88.1 Allergy status to other antibiotic agents; Z79.82 Long term (current) use of aspirin; Z90.49 Acquired absence of other specified parts of digestive tract; Z79.899 Other long term (current) drug therapy; Z87.442 Personal history of urinary calculi; Z98.890 Other specified postprocedural states
CPT/HCPCS: 36415; 74019; 74177; 80053; 81001; 83605; 85025; 86140; 87040; 87086; 87088; 87186; 96365; 99223; 99232; 99233; 99238; 99285-25; A9270-GY; J0696; J1200; J1335; J1650; J1885; J2185; J2543; J3480; J3490; J7030; Q9967